=== PATIENT | female | born 1980 | race Caucasian/White ===

== ENCOUNTER 2018-01-22 18:51 | Emergency (ER) | payer OTHER ==
[~2018-01-22] VITALS: Ht 162.6 cm; Wt 108.9 kg
[~2018-01-22 18:51] MED LIST: ALBIPROI INH; ALBU8HFA2 INH; ALBU90OI; ALBU90OI INH; AMOC200S75; AMOCLA500 PO; AMOCLA875; AMOX500 PO; AZIT250 PO; AZIT500 PO; CEPH500 PO; CIPR500 PO; CODGUAEL PO; CRUTCH4 USE; CYCL10 PO; DEXGUASY; DIPATR PO; DOXY100 PO; ESCI10; ESCI10 PO; ESCI5; FERSU250ER; HYDACE5; HYDACE5 PO; HYDGUAL120 PO; IBUP800; IBUP800 PO; KETO10 PO; METO10 PO; METPRE4DP PO; NAPR500 PO; OXYACE5T PO; OXYACE7.5T PO; PARO20; PHENA200 PO; PRED20 PO; PROCODE120 PO; PROM25 PO; RXAMOCLASU PO; RXHYDACE PO; RXOXYACE PO; RXPHEN200 PO; RXSULTRIDS PO; SERT25; SERT50 PO; STOMUL; SULF10OPSA LEFTEYE; SULTRIDS PO; Veetids 500500 MG PO
[2018-01-22] MEDS ORDERED: PROG100 PO (19:33)
[2018-01-22] MEDS ORDERED: ESCI5 PO (19:33)
[2018-01-22] MEDS ORDERED: IBUP800 PO (20:51)
== END 2018-01-22 21:08 | disposition home or self-care (01) ==
LOC: ER 18:51
DX: J02.9 Acute pharyngitis, unspecified (principal); F41.9 Anxiety disorder, unspecified; F17.200 Nicotine dependence, unspecified, uncomplicated; Z88.5 Allergy status to narcotic agent; Z88.8 Allergy status to other drugs, medicaments and biological substances; Z79.899 Other long term (current) drug therapy
CPT/HCPCS: 87081; 87430; J1100

== ENCOUNTER 2018-02-03 13:29 | Emergency (ER) | payer OTHER ==
[~2018-02-03] VITALS: Ht 170.2 cm; Wt 72.6 kg
[~2018-02-03 13:29] MED LIST changes: +ESCI5 PO; +PROG100 PO
== END 2018-02-03 14:57 | disposition home or self-care (01) ==
LOC: ER 13:29
DX: S93.402A Sprain of unspecified ligament of left ankle, initial encounter (principal); F41.9 Anxiety disorder, unspecified; F17.200 Nicotine dependence, unspecified, uncomplicated; Z88.5 Allergy status to narcotic agent; Z88.8 Allergy status to other drugs, medicaments and biological substances; Z79.899 Other long term (current) drug therapy; W01.0XXA Fall on same level from slipping, tripping and stumbling without subsequent striking against object, initial encounter; Y99.0 Civilian activity done for income or pay
CPT/HCPCS: 29515; 73610; 73630; 99283-25

== ENCOUNTER 2023-07-05 11:42 | Emergency (ER) | payer OTHER ==
[~2023-07-05] VITALS: Ht 162.6 cm; Wt 97.5 kg
[~2023-07-05 11:42] MED LIST changes: +ONDA4ODT MM
[2023-07-05 12:34] LABS: BASOPHILS ABSOLUTE AUTO 0.03 K/mm3 (0.00-0.23); BASOPHILS PERCENT AUTO 0 % (0-2); EOSINOPHILS ABSOLUTE AUTO 0.12 K/mm3 (0.00-0.68); EOSINOPHILS PERCENT AUTO 2 % (0-6); Hematocrit 43.3 % (33.0-51.0); IMMATURE GRAN ABSOLUTE AUTO 0.02 K/mm3 (0.00-0.10); IMMATURE GRAN PERCENT AUTO 0 % (0-1); LYMPHOCYTES ABSOLUTE AUTO 2.48 K/mm3 (0.84-5.20); LYMPHOCYTES PERCENT AUTO 32 % (21-46); MONOCYTES ABSOLUTE AUTO 0.51 K/mm3 (0.16-1.47); MONOCYTES PERCENT AUTO 7 % (4-13); Mean Corpuscular HGB 28.5 pg (26.0-34.0); Mean Corpuscular HGB Conc 32.3 g/dL (31.5-36.5); Mean Corpuscular Volume 88 fL (80-100); Mean Platelet Volume 9.5 fL (9.1-12.4); NEUTROPHILS ABSOLUTE AUTO 4.55 K/mm3 (1.96-9.15); NEUTROPHILS PERCENT AUTO 59 % (41-73); Platelet Count 391 K/mm3 (150-400); RDW Coefficient Variation 13.2 % (11.7-14.2); RDW Standard Deviation 42.2 fL (35.1-46.3); Red Blood Cell Count 4.91 M/mm3 (3.80-5.20); White Blood Cell Count 7.71 K/mm3 (4.00-11.30)
[2023-07-05 13:03] LABS: Albumin, Blood 3.8 g/dL (3.4-5.0); Bilirubin, Total 0.2 mg/dL (0.1-1.0); Bun/Creatinine Ratio 17.1 (12.0-20.0); Calcium, Blood 9.4 mg/dL (8.5-10.1); Creatinine, Blood 0.7 mg/dL (0.40-1.00); Globulin, Blood 3.7 g/dL (2.2-4.0); Potassium, Blood 4.1 mmol/L (3.5-5.5); Total Protein, Blood 7.5 g/dL (6.4-8.2)
[2023-07-05 13:51] LABS: Source, Urine Clean Catch
[2023-07-05] MEDS ORDERED: OZEMPIC1 MG/0.72 SQ (13:51)
[2023-07-05] MEDS ORDERED: ESCI10 PO (13:51)
[2023-07-05 14:00] LABS: Appearance, Urine Clear (Clear); Bilirubin, Urine Neg (Neg); Blood, Urine 2+ (Neg); Color, Urine Yellow (P-Yellow); Glucose Qualitative, Urine Neg (Neg); Ketones, Urine Neg (Neg); Leukocyte Esterase, Urine Neg (Neg); Nitrite, Urine Neg (Neg); Protein, Urine Neg (Neg); Specific Gravity, Urine 1.015 (1.003-1.022); Urobilinogen, Urine NORM (Normal); pH, Urine 6.5 (5.0-8.0)
[2023-07-05 14:08] LABS: Bacteria Few /hpf; Red Blood Cells, Urine 0-2 /hpf (0-2); Squamous Epithelial Cells Few /hpf (Few); White Blood Cells, Urine 0-2 /hpf (0-5)
[2023-07-05 15:15] VITALS: BP 145/96
[2023-07-05] MEDS ORDERED: HYDR1TAB94 PO (15:22)
== END 2023-07-05 15:46 | disposition home or self-care (01) ==
LOC: ER 11:42
PROVIDERS: Physician Assistant
DX: R10.31 Right lower quadrant pain (principal); R11.0 Nausea; T38.3X5A Adverse effect of insulin and oral hypoglycemic [antidiabetic] drugs, initial encounter; Z79.899 Other long term (current) drug therapy; F17.200 Nicotine dependence, unspecified, uncomplicated; Z88.5 Allergy status to narcotic agent; Z88.8 Allergy status to other drugs, medicaments and biological substances
CPT/HCPCS: 74177; 80053; 81001; 85025; 96374; 96375; 99284-25; J2405; J3010; Q9967

== ENCOUNTER → 2025-02-05 | Outpatient (CLI) | payer OTHER ==
[~2025-02-05] MED LIST changes: +HYDR1TAB94 PO; +OZEMPIC1 MG/0.72 SQ
[2025-02-05 17:00] LABS: Candida Group, PCR NOT DETECTED (NOT DETECT); Candida glabrata-krusei, PCR NOT DETECTED (NOT DETECT)
[2025-02-05 17:33] LABS: Chlamydia Trachomatis Vaginal NOT DETECTED (NOT DETECT); Neisseria Gonorrhoea Vaginal NOT DETECTED (NOT DETECT)
[2025-02-05 23:41] LABS: Bacterial Vaginosis PCR Positive (NEGATIVE)
== END ==
LOC: LAB SHORT 14:05 → LAB 14:05
PROVIDERS: Nurse Practitioner Family
DX: Z12.4 Encounter for screening for malignant neoplasm of cervix (principal)
CPT/HCPCS: 81515; 87491; 87591; 87624; G0123; G0145

== ENCOUNTER → 2025-03-02 | Outpatient (CLI) | payer OTHER ==
[2025-03-02 16:42] LABS: Bacterial Vaginosis PCR Negative (NEGATIVE); Candida Group, PCR NOT DETECTED (NOT DETECT); Candida glabrata-krusei, PCR NOT DETECTED (NOT DETECT)
== END | disposition home or self-care (01) ==
LOC: LAB SHORT 11:12 → LAB 11:12
PROVIDERS: Nurse Practitioner Family
DX: N89.8 Other specified noninflammatory disorders of vagina (principal)
CPT/HCPCS: 81515